=== PATIENT | male | born 1965 | race Caucasian/White ===

== ENCOUNTER 2016-09-21 17:33 | Emergency (ER) | payer OTHER ==
[~2016-09-21] VITALS: Ht 172.7 cm; Wt 70.7 kg
[~2016-09-21 17:33] MED LIST: CLINDAMYCIN HY300 MG PO; PERCOCET 5-3251 EACH PO; SYNTHROID100 MCG PO
[2016-09-21] MEDS ORDERED: VITAMIN D1000 UNIT PO (20:41)
[2016-09-21] MEDS ORDERED: CALCIUM600 M2 PO (20:42)
--- NOTE | 2016-09-21 21:25 | ED NECK/BACK PAIN COMPLAINT ---
History of Present Illness General Chief Complaint: General Adult Stated Complaint: LOWER BACK PAIN, RIGHT LEG NUMBNESS Source: patient Exam Limitations: no limitations Vital Signs & Intake/Output Vital Signs & Intake/Output Vital Signs Date Time Temp Pulse Resp B/P Pulse O2 O2 Flow FiO2 Ox Delivery Rate 09/21 2343 98.7 79 18 118/73 98 Room Air 09/21 2117 Room Air 09/21 2113 98.6 82 17 124/76 99 Room Air 09/21 1758 98.9 98 16 128/85 97 Room Air Allergies Coded Allergies: Penicillins (ANAPHYLAXIS 01/31/16) PCN PER ANTIBIOTIC ORDER SHEET OF 01/31/16 (SJS) Reconcile Medications Calcium Carbonate (Calcium) (Unknown Strength) TABLET (Unknown Dose) PO DAILY SUPPLEMENT (Reported) Cholecalciferol (Vitamin D3) (Vitamin D) 1,000 UNIT TABLET 1 TAB PO DAILY SUPPLEMENT (Reported) Diazepam (Valium) 2 MG TABLET 1 TAB PO BID PRN muscle strain Levothyroxine Sodium (Synthroid) 100 MCG TABLET 1 TAB PO DAILY thryoid Naproxen (Naprosyn) 500 MG TABLET 1 TAB PO BID PRN pain and inflammation Triage Note: PT STATES HE WAS WORKING WITH [employer]CR[employer] AND HE WENT TO PUT 80LBS DOWN AND HE FELT IT SLIPPING AND HE BENT TO TRY AND CATCH IT AND HE FELT A SHOCK IN HIS BACK. PT STATES HE COULDNT GET OFF THE GROUND FOR 20 MINUTES. PT STATES HE IS GETTING VERY BAD SPASM WHERE HE CAN'T MOVE. Triage Nurses Notes Reviewed? yes HPI: This patient is a 51-year-old male who presented to the emergency department today for evaluation of back pain. The patient reported that yesterday he was moving a cinderblock when it started to slip from his hands and he moved suddenly to catch it and bending down. He reported that he felt a snap and he felt the ground. He reported that he was unable to move or get up for approximately 15-20 minutes afterwards due to the pain and spasming. He reported that the pain gets up to a 10 out of 10, sharp and radiates down his right inner thigh. He denied any numbness or tingling in his leg or pain radiating down to his foot. He reported that the pain is primarily in the right lower back. No palliative factors. The patient denied any weakness in his lower extremities. He denied any fevers, chills, chest pain, shortness of breath, abdominal pain, nausea, vomiting, saddle paresthesia, bowel or bladder incontinence, urinary burning, urgency, frequency, or blood in the urine. No other associated symptoms. (CAITLIN JOSE PA-C) Past History Travel History Traveled to [place] past 21 day No Medical History Any Pertinent Medical History? 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 No (CAITLIN JOSE PA-C) Review of Systems Review of Systems Constitutional: Reports: no symptoms. Eyes: Reports: no symptoms. Ears, Nose, Throat, Mouth: Reports: no symptoms. Respiratory: Reports: no symptoms. Cardiovascular: Reports: no symptoms. Gastrointestinal/Abdominal: Reports: no symptoms. Musculoskeletal: Reports: see HPI. Skin: Reports: no symptoms. Neurological/Psychological: Reports: no symptoms. All Other Systems: Reviewed and Negative (CAITLIN JOSE PA-C) Physical Exam Physical Exam Neck: normal inspection, supple, full range of motion, normal alignment Comments: Well-developed well-nourished person in mild distress HEENT: Normal EENT exam, head normocephalic, moist mucous membranes Pupils equally round and reactive to light. Back: Normal inspection. Positive lumbar midline tenderness. Right-sided lumbar paraspinal musculature tenderness. Positive straight leg raise at 45 on the left. Positive straight leg raise at 30 on the right. Antalgic gait Respiratory: No respiratory distress. Speaking in full sentences Extremity: No edema, no calf tenderness to palpation, normal and equal pulses. Neuro: Alert oriented x3, cranial nerves II through XII grossly intact. 5 out of 5 muscular strength in all extremities Skin: No appreciable rash on exposed skin, skin is warm and dry. Psych: Mood and affect is normal (CAITLIN JOSE PA-C) Progress Differential Diagnosis: cauda equina syn, herniated disc, myofascial strain, pyelo/UTI, sciatica, spinal cord inj, thoracic outlet syn, T/L spine injury, ureterolithiasis Plan of Care: Orders Procedure Date/time Status COMPREHENSIVE METABOLIC PANEL 09/21 2157 Complete CBC WITHOUT DIFFERENTIAL 09/21 2157 Complete Laboratory Tests 09/21/16 2202: Anion Gap 18 H, Estimated GFR > 60, BUN/Creatinine Ratio 17.8, Glucose 90, Calcium 8.7, Total Bilirubin 0.6, AST 198 H, ALT 137 H, Alkaline Phosphatase 158 H, Total Protein 7.3, Albumin 3.9, Globulin 3.4, Albumin/Globulin Ratio 1.1 , CBC w Diff NO MAN DIFF REQ, RBC 3.59 L, MCV 115.0 H, MCH 39.9 H, RDW 12.6, MPV 7.3 L, Gran % 50.5, Lymphocytes % 32.7, Monocytes % 12.0 H, Eosinophils % 4.0, Basophils % 0.8, Absolute Granulocytes 2.7, Absolute Lymphocytes 1.8, Absolute Monocytes 0.6, Absolute Eosinophils 0.2, Absolute Basophils 0, PUBS MCHC 34.7 Diagnostic Imaging: Viewed by Me: CT Scan. Discussed w/RAD: CT Scan. Radiology Impression: PATIENT: BRAYDEN BREWER PRESENT AGE: 51 PATIENT ACCOUNT NO: [id number] : [birth year] LOCATION: [facility] ORDERING PHYSICIAN: CAITLIN JOSE PA-C SERVICE DATE: 09/21/16 EXAM TYPE: CAT - CT LUMB SPINE WO IV CONTRAST EXAMINATION: CT LUMBAR SPINE WITHOUT CONTRAST CLINICAL INFORMATION: Back pain. COMPARISON: None. TECHNIQUE: Axial images obtained through the lumbar spine. Coronal and sagittal reformatted images performed at CT scanner DLP: 336.43 mGy-cm. FINDINGS: No fracture. No focal bone lesion. Vertebrae have normal height and alignment. Facet joints are normal. Scattered vascular wall calcification of aorta and iliac vessels without aneurysm. Kidneys unremarkable. No hydronephrosis. SPINAL LEVELS: T12-L1: Normal. L1-L2: Normal. L2-L3: Normal. L3-L4: Normal. L4-L5: Normal. L5-S1: Normal. IMPRESSION: Unremarkable examination. DICTATED BY: DANIELLE GODWIN MD DATE/ TIME DICTATED:09/21/162120 FIRE TENDER:CONNER DATE/TIME TRANSCRIBED: 09/21/162120 CONFIDENTIAL, DO NOT COPY WITHOUT APPROPRIATE AUTHORIZATION. < Electronically signed in Other Vendor System> SIGNED BY: DANIELLE GODWIN MD 2127 Comments: 09/21/2016 10:31:15 PM: I was at the patient's bedside for reevaluation. He reported no relief of his symptoms with Soma, ibuprofen, and tramadol. Discussed this patient with DR GRUBBS who recommended giving this patient IV Valium and morphine. Updated the patient on the results of the CT scan was unremarkable. This patient will need an MRI and specialty follow-up. 09/21/2016 11:28:47 PM: I was at the patient's bedside for reevaluation. He is currently sitting up on the stretcher in reported that he feels like he is able to move around easier with the medication. The patient is requesting to go home at this time. I explained to the patient that he will need to call the specialist whose information I will provide for follow-up; he will likely need an MRI to rule out disc herniation. He was instructed to return for any worsening symptoms. (CAITLIN JOSE PA-C) Departure Departure Disposition: HOME OR SELF CARE Condition: Stable Clinical Impression Primary Impression: Low back strain Qualifiers: Encounter type: initial encounter Qualified Code: S39.012A - Strain of muscle, fascia and tendon of lower back, initial encounter Referrals: VINICIUS LEIJA DO (PCP/Family) JIM DIA,JENNIFER [place]. Additional Instructions: Take medication for pain as prescribed. Please call the orthopedic physician is information has been provided to you to schedule a follow-up appointment for further evaluation and management. Rest. Avoid any strenuous activity or heavy lifting. You may apply ice or heat to the affected area as needed. Gentle stretching. Return to the emergency department for any worsening symptoms or concerns. 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 I have also reviewed all the pertinent lab results and diagnostic results. I agree with the findings and the plan of care as documented in the PA's/OIL AND GAS RECRUITER's documentation. x I have reviewed the ED Record and agree with the PA's/OIL AND GAS RECRUITER's documentation. [] Additions or exceptions (if any) to the PAs/OIL AND GAS RECRUITER's note and plan are summarized below: [] (HUMERA DIA,WANDY)
--- NOTE | 2016-09-21 21:28 | CT SCAN REPORT ---
EXAMINATION: CT LUMBAR SPINE WITHOUT CONTRAST CLINICAL INFORMATION: Back pain. COMPARISON: None. TECHNIQUE: Axial images obtained through the lumbar spine. Coronal and sagittal reformatted images performed at CT scanner DLP: 336.43 mGy-cm. FINDINGS: No fracture. No focal bone lesion. Vertebrae have normal height and alignment. Facet joints are normal. Scattered vascular wall calcification of aorta and iliac vessels without aneurysm. Kidneys unremarkable. No hydronephrosis. SPINAL LEVELS: T12-L1: Normal. L1-L2: Normal. L2-L3: Normal. L3-L4: Normal. L4-L5: Normal. L5-S1: Normal. IMPRESSION: Unremarkable examination.
[2016-09-21 22:16] LABS: ABSOLUTE BASOPHIL COUNT 0 /CUMM (0.0-0.2); ABSOLUTE EOSINOPHIL COUNT 0.2 /CUMM (0.0-0.7); ABSOLUTE GRANULOCYTE CT 2.7 /CUMM (1.4-6.5); ABSOLUTE LYMPH COUNT 1.8 /CUMM (1.2-3.4); ABSOLUTE MONOCYTE COUNT 0.6 /CUMM (0.10-0.60); BASOPHIL % 0.8 % (0.0-2.0); GRANULOCYTE % 50.5 % (42.2-75.2); HEMATOCRIT 41.3 % (42-52); MEAN CORPUSCULAR HGB 39.9 PG (27.0-31.0); MEAN CORPUSCULAR HGB CONC 34.7 G/DL (33.0-37.0); MEAN PLATELET VOLUME 7.3 FL (7.4-10.4); PLATELET COUNT 149 /CUMM (130-400); RBC DISTRIBUTION WIDTH 12.6 % (11.5-14.5); RED BLOOD CELL CT 3.59 /CUMM (4.70-6.10); WHITE BLOOD CELL COUNT 5.4 /CUMM (4.8-10.8)
[2016-09-21] MEDS ORDERED: NAPROSYN500 M1 PO (23:31)
[2016-09-21] MEDS ORDERED: VALIUM2 M1 PO (23:31)
[2016-09-21 23:43] VITALS: BP 118/73
== END 2016-09-21 23:44 ==
LOC: ERH 17:33
PROVIDERS: Physician Assistant
DX: S39.012A Strain of muscle, fascia and tendon of lower back, initial encounter (principal); X58.XXXA Exposure to other specified factors, initial encounter
CPT/HCPCS: 96374; 96375; J3360

== ENCOUNTER 2017-02-17 18:49 | Emergency (ER) | payer OTHER ==
[~2017-02-17 18:49] MED LIST changes: +CALCIUM600 M2 PO; +NAPROSYN500 M1 PO; +VALIUM2 M1 PO; +VITAMIN D1000 UNIT PO
--- NOTE | 2017-02-17 19:09 | ED AMS/SEIZURE/WEAK/DIZZY ---
History of Present Illness General Chief Complaint: Altered Mental Status Stated Complaint: BIBA NONRESPONSIVE Source: old records, EMS Exam Limitations: unable to give history, clinical condition Vital Signs & Intake/Output Vital Signs & Intake/Output Vital Signs Date Time Temp Pulse Resp B/P B/P Pulse O2 O2 Flow FiO2 Mean Ox Delivery Rate 02/17 2258 74 18 117/82 98 Room Air 02/17 2118 96.6 70 17 110/65 95 Room Air 02/170 96.9 77 19 117/72 95 Room Air 02/18 2012 96.5 84 17 95/60 93 Room Air 02/17 1943 96.4 86 17 104/68 94 Room Air 02/17 1854 96.9 92 18 132/79 93 Room Air ED Intake and Output 02/18 0000 02/17 1200 Intake Total 1000 Output Total Balance 1000 Intake, IV 1000 Allergies Coded Allergies: Penicillins (ANAPHYLAXIS 01/31/16) PCN PER ANTIBIOTIC ORDER SHEET OF 01/31/16 (SJS) Reconcile Medications Calcium Carbonate (Calcium) (Unknown Strength) TABLET (Unknown Dose) PO DAILY SUPPLEMENT (Reported) Cholecalciferol (Vitamin D3) (Vitamin D) 1,000 UNIT TABLET 1 TAB PO DAILY SUPPLEMENT (Reported) Diazepam (Valium) 2 MG TABLET 1 TAB PO BID PRN muscle strain Levothyroxine Sodium (Synthroid) 100 MCG TABLET 1 TAB PO DAILY thryoid Naproxen (Naprosyn) 500 MG TABLET 1 TAB PO BID PRN pain and inflammation Triage Nurses Notes Reviewed? yes HPI: Patient presents for evaluation of unresponsiveness. Patient apparently tech stated a family member "help" and subsequently found to be altered to unresponsive by his son. Past History Travel History Traveled to [place] past 21 day No Medical History Any Pertinent Medical History? 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 No Review of Systems Review of Systems Constitutional: Reports: see HPI. Comments Patient unable to provide review of systems Physical Exam Physical Exam General Appearance: SEE BELOW Comments: Gen.: Well-nourished, well-developed, no acute respiratory distress. Patient is not cooperative with exam or history. Head: Normocephalic, atraumatic. Eyes: Normal inspection bilaterally, pupils midpoint and reactive Ears: Normal inspection bilaterally Nose: Normal inspection Throat/mouth : Moist mucosa Face: Flushed versus sunburn Neck: Supple, full range of motion, no goiter Heart: Regular rate and rhythm, no murmurs rubs or gallops Lungs: Clear to auscultation bilaterally with normal air entry Chest: Nontender Back: Normal range of motion Abdomen: Soft, nontender, nondistended, normal bowel sounds Extremities: Normal range of motion grossly, equal radial pulses, no cyanosis clubbing or edema Neurologic: Cranial nerves grossly intact, unable to assess speech Skin: warm and dry Psychiatric: Unable to assess as patient is not Vocally communicative Core Measures ACS in differential dx? No CVA/TIA Diagnosis: No Severe Sepsis Present: No Septic Shock Present: No Progress Differential Diagnosis: alcohol intoxication, CVA/stroke, dehydration, drug intoxication, hypoglycemia, hypoxia, intracranial Hem., intracranial mass/tumor, seizure disorder, OCCULT HEAD TRAUMA Plan of Care: Orders Procedure Date/time Status Restraint- Discontinue 02/17 2125 Active Continuous Observation Monitor 02/18 2104 Active Restraint- Behavioral ([facility]ew) 02/18 2012 Active Saline Lock 02/18 1908 Active URINE DRUG SCREEN FOR ER ONLY 02/18 1908 Active URINALYSIS 02/18 1908 Active THYROID STIMULATING HORMONE 02/18 1908 Complete TROPONIN LEVEL 02/18 1908 Complete T3 UPTAKE (THYROXINE BIND CAP) 02/18 1908 Complete THYROXINE 02/18 1908 Complete ETHANOL 02/18 1908 Complete COMPREHENSIVE METABOLIC PANEL 02/18 1908 Complete CBC WITHOUT DIFFERENTIAL 02/18 1908 Complete EKG 02/18 1908 Active Current Medications Sig/Pete Start time Last Medication Dose Stop Time Status Admin Sodium Chloride 1,000 ML ONCE ONE 02/17 1915 AC 02/17 (Normal Saline 0.9%) 02/18 0154 1938 Laboratory Tests 02/18/17 0019: Methadone Screen Pending, Barbiturate Screen Pending, Ur Phencyclidine Scrn Pending, Amphetamines Screen Pending, U Benzodiazepines Scrn Pending, Urine Cocaine Screen Pending, Urine Cannabis Screen Pending, Urine Color Pending, Urine Clarity Pending, Urine pH Pending, Ur Specific Dawn Pending, Urine Protein Pending, Urine Ketones Pending, Urine Nitrite Pending, Urine Bilirubin Pending, Urine Urobilinogen Pending, Ur Leukocyte Esterase Pending, Ur Microscopic Pending, Urine Hemoglobin Pending, Urine Glucose Pending 02/17/171935: Anion Gap 13, Estimated GFR > 60, BUN/Creatinine Ratio 19.0, Glucose 90, Calcium 7.5 L, Total Bilirubin 0.7, AST 174 H, ALT 117 H, Alkaline Phosphatase 121, Troponin I < 0.01, Total Protein 6.0 L, Albumin 3.0 L, Globulin 3.0, Albumin/ Globulin Ratio 1.0 L, TSH 0.351, Thyroxine (T4) 7.9, Thyroxine Binding Indx 44.6 H, CBC w Diff NO MAN DIFF REQ, RBC 3.22 L, MCV 118.8 H, MCH 41.2 H, RDW 12.8, MPV 7.0 L, Gran % 50.2, Lymphocytes % 37.1, Monocytes % 10.5 H, Eosinophils % 1.8, Basophils % 0.4, Absolute Granulocytes 4.0, Absolute Lymphocytes 2.9, Absolute Monocytes 0.8 H, Absolute Eosinophils 0.1, Absolute Basophils 0, PUBS MCHC 34.7, Serum Alcohol 225.0 Microbiology 02/18 1908 URINE ROUT: Urine Culture - CAN Cancelled: Cancelled via OE: Per MD Decision Diagnostic Imaging: Discussed w/RAD: Radiology Read, CT Scan. Radiology Impression: PATIENT: BRAYDEN BREWER PRESENT AGE: 52 PATIENT ACCOUNT NO: [id number] : 69 LOCATION: [facility] ORDERING PHYSICIAN: CHAPO NOLASCO MD SERVICE DATE: 02/17/17 EXAM TYPE: CAT - CT HEAD WO IV CONTRAST EXAMINATION: CT HEAD WITHOUT CONTRAST CLINICAL INFORMATION: 52-year-old man with trauma. COMPARISON: None TECHNIQUE: Contiguous axial imaging was performed from the skull base to vertex without intravenous administration of contrast. DLP: 690 mGy-cm FINDINGS: There is no evidence of acute intracranial hemorrhage or territorial infarction. No abnormal mass effect or midline shift is seen. Conner to white matter differentiation is well preserved. No extra-axial fluid collections are identified. The ventricles are normal in size. There is no abnormal attenuation within the brain parenchyma. The osseous structures and soft tissues are normal. Mild mucosal thickening is noted in the ethmoid air cells, sphenoid sinus, and left maxillary sinus. IMPRESSION: No acute intracranial pathology. DICTATED BY: DANYEL MACDONALD MD DATE/ TIME DICTATED:02/17/172149 SALESPERSON RECREATIONAL VEHICLES:CONNER DATE/TIME TRANSCRIBED: 02/17/172149 CONFIDENTIAL, DO NOT COPY WITHOUT APPROPRIATE AUTHORIZATION. < Electronically signed in Other Vendor System> SIGNED BY: DANYEL MACDONALD MD 06/26 CXR Impression: PATIENT: BRAYDEN BREWER PRESENT AGE: 52 PATIENT ACCOUNT NO: [id number] : 69 LOCATION: [facility] ORDERING PHYSICIAN: CHAPO NOLASCO MD SERVICE DATE: 02/17/17 EXAM TYPE: RAD - XRY-PORTABLE CHEST XRAY EXAMINATION: XR PORTABLE CHEST CLINICAL INFORMATION: 52-year-old man with confusion. COMPARISON: None TECHNIQUE: Portable frontal view of the chest was obtained. FINDINGS: Lung volumes are somewhat low, accentuating normal bronchovascular markings. No convincing focal airspace consolidation or overt pulmonary edema is appreciated. Heart size is at the upper range of normal. There are no pleural effusions. IMPRESSION: Low lung volumes. No convincing radiographic evidence of an acute cardiopulmonary process. DICTATED BY: DANYEL MACDONALD MD DATE/TIME DICTATED:02/17/171927 SALESPERSON RECREATIONAL VEHICLES:CONNER DATE/TIME TRANSCRIBED:02/17/171927 CONFIDENTIAL, DO NOT COPY WITHOUT APPROPRIATE AUTHORIZATION. <Electronically signed in Other Vendor System> SIGNED BY: DANYEL MACDONALD MD 02/17/171930 Initial ED EKG: NSR, rate (95), LAD Prior EKG: unchanged Comments: 02/17/2017 7:06:27 PM patient was unresponsive to verbal intervention when placed onto the stretcher. He attempted to kick and bite the ED staff. 4 point leather restraints applied and IM sedatives ordered. No apparent signs of head trauma. No alcohol like odor. During restraint patient seemed to make purposeful movements/suspect underlying psychiatric issue. 02/17/2017 8:08:30 PM per , pt well this afternoon and went to sleep. c/o trouble breathing recently txed for bronchitis. also c/o back pain (has episodes on occasion). 02/17/2017 8:11:01 PM Brayden appears to be considerably more sedate and is now answering questions. We are beginning to remove the restraints. I have notified him of my discussion with his and that she will be arriving shortly. He seemed a little ashamed that the notion that his would be coming in to see him. He admits to alcohol use this evening. 02/18/2017 12:31:47 AM Brayden has slept during his emergency department stay and has been removed from the restraints. He has been back and forth to the bathroom without much difficulty. His feels comfortable taking him home at this point. Departure Departure Disposition: HOME OR SELF CARE Condition: Stable Clinical Impression Primary Impression: Alcohol intoxication delirium, acute, hyperactive Secondary Impressions: Alcoholic hepatitis Qualifiers: Ascites presence: without ascites Qualified Code: K70.10 - Alcoholic hepatitis without ascites Referrals: VINICIUS LEIJA DO Additional Instructions: Do not drink to excess. Follow-up with your primary care doctor this week for reevaluation. Return if any concerns or sudden worsening. Please note that there might be incidental findings in your evaluation that are unrelated to the current emergency department visit. Please notify your primary care doctor about this emergency department visit in order to obtain and review all of the testing performed so that these incidental findings can be monitored as needed. If you had an x-ray performed, please understand that some fractures may not be seen on the initial set of x-rays. If your symptoms persist you might need a repeat set of x-rays to check for such a fracture. If you had a laceration evaluated, please understand that foreign bodies such as glass or wood may not be visible to the naked eye or on plain x-rays. If the wound becomes red, swollen, increasingly more painful or if there is any drainage from the wound, please have it reevaluated by a physician for the possibility of a retained foreign body. Thank you for choosing the [facility] for your care. It was a pleasure to serve you today. Chapo Nolasco M.D. [facility] Departure Forms: Customer Survey General Discharge Information
--- NOTE | 2017-02-17 19:31 | RADIOLOGY REPORT ---
EXAMINATION: XR PORTABLE CHEST CLINICAL INFORMATION: 52-year-old man with confusion. COMPARISON: None TECHNIQUE: Portable frontal view of the chest was obtained. FINDINGS: Lung volumes are somewhat low, accentuating normal bronchovascular markings. No convincing focal airspace consolidation or overt pulmonary edema is appreciated. Heart size is at the upper range of normal. There are no pleural effusions. IMPRESSION: Low lung volumes. No convincing radiographic evidence of an acute cardiopulmonary process.
[2017-02-17 19:54] LABS: ABSOLUTE BASOPHIL COUNT 0 /CUMM (0.0-0.2); ABSOLUTE EOSINOPHIL COUNT 0.1 /CUMM (0.0-0.7); ABSOLUTE LYMPH COUNT 2.9 /CUMM (1.2-3.4); ABSOLUTE MONOCYTE COUNT 0.8 /CUMM (0.10-0.60); BASOPHIL % 0.4 % (0.0-2.0); EOSINOPHIL % 1.8 % (0-5); GRANULOCYTE % 50.2 % (42.2-75.2); HEMATOCRIT 38.3 % (42-52); MEAN CORPUSCULAR HGB 41.2 PG (27.0-31.0); MEAN CORPUSCULAR HGB CONC 34.7 G/DL (33.0-37.0); MEAN CORPUSCULAR VOLUME 118.8 FL (80.0-94.0); PLATELET COUNT 141 /CUMM (130-400); RBC DISTRIBUTION WIDTH 12.8 % (11.5-14.5); RED BLOOD CELL CT 3.22 /CUMM (4.70-6.10); WHITE BLOOD CELL COUNT 7.9 /CUMM (4.8-10.8)
--- NOTE | 2017-02-17 21:55 | CT SCAN REPORT ---
EXAMINATION: CT HEAD WITHOUT CONTRAST CLINICAL INFORMATION: 52-year-old man with trauma. COMPARISON: None TECHNIQUE: Contiguous axial imaging was performed from the skull base to vertex without intravenous administration of contrast. DLP: 690 mGy-cm FINDINGS: There is no evidence of acute intracranial hemorrhage or territorial infarction. No abnormal mass effect or midline shift is seen. Conner to white matter differentiation is well preserved. No extra-axial fluid collections are identified. The ventricles are normal in size. There is no abnormal attenuation within the brain parenchyma. The osseous structures and soft tissues are normal. Mild mucosal thickening is noted in the ethmoid air cells, sphenoid sinus, and left maxillary sinus. IMPRESSION: No acute intracranial pathology.
[2017-02-18 00:46] VITALS: BP 126/84
== END 2017-02-18 00:48 ==
LOC: ERH 18:49
PROVIDERS: Emergency Medicine
DX: K70.10 Alcoholic hepatitis without ascites (principal); F10.921 Alcohol use, unspecified with intoxication delirium
CPT/HCPCS: 80307; 81001; 87086; 93005; 93010; 96372; G0480; J1200; J1630

== ENCOUNTER 2018-02-11 04:38 | Emergency (ER) | payer OTHER ==
[~2018-02-11] VITALS: Ht 172.7 cm; Wt 63.5 kg
--- NOTE | 2018-02-11 04:42 | ED GENERAL ADULT ---
History of Present Illness General Chief Complaint: General Adult Stated Complaint: "RT SIDE ABD PAIN, +N+V+D Source: patient Exam Limitations: no limitations Vital Signs & Intake/Output Vital Signs & Intake/Output Vital Signs Date Time Temp Pulse Resp B/P B/P Pulse O2 O2 Flow FiO2 Mean Ox Delivery Rate 02/11 0507 98 Room Air 02/11 0447 96.0 78 18 162/93 99 Room Air Allergies Coded Allergies: Penicillins (ANAPHYLAXIS 01/31/16) PCN PER ANTIBIOTIC ORDER SHEET OF 01/31/16 ([facility]) Reconcile Medications Calcium Carbonate (Calcium) (Unknown Strength) TABLET (Unknown Dose) PO DAILY SUPPLEMENT (Reported) Cholecalciferol (Vitamin D3) (Vitamin D) 1,000 UNIT TABLET 1 TAB PO DAILY SUPPLEMENT (Reported) Diazepam (Valium) 2 MG TABLET 1 TAB PO BID PRN muscle strain Diphenoxylate HCl/Atropine (Lomotil 2.5-0.025 MG Tablet) 2.5 MG-0.025 MG TABLET 1-2 TAB PO 4 TIMES/DAY DIARRHEA TWENTY....[id number] Levothyroxine Sodium (Synthroid) 100 MCG TABLET 1 TAB PO DAILY thryoid Naproxen (Naprosyn) 500 MG TABLET 1 TAB PO BID PRN pain and inflammation Ondansetron (Zofran Odt) 4 MG TAB.RAPDIS 1 TAB SL TID PRN NAUSEA Triage Nurses Notes Reviewed? yes Onset: Gradual Duration: day(s): Timing: recent history Injury Environment: home Severity: moderate Modifying Factors: Worsens With: other (worse w/palpation). Associated Symptoms: rlq pain HPI: 23-year-old gentleman in prior good health presents with 2-3 days of diffuse abdominal pain that migrated to his right lower quadrant, associated with nausea vomiting diarrhea and loss of appetite. He has no fever chills chest pain shortness of breath or headache. He states that he has had a decreased oral intake over the past few days. He is otherwise well and has no other concerns. Past History Travel History Traveled to [place] past 21 day No Medical History Any Pertinent Medical History? 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 No Review of Systems Review of Systems Constitutional: Reports: no symptoms. EENTM: Reports: no symptoms. Respiratory: Reports: no symptoms. Cardiovascular: Reports: no symptoms. GI: Reports: no symptoms. Genitourinary: Reports: no symptoms. Musculoskeletal: Reports: no symptoms. Skin: Reports: no symptoms. Neurological/Psychological: Reports: no symptoms. Hematologic/Endocrine: Reports: no symptoms. Immunologic/Allergic: Reports: no symptoms. All Other Systems: Reviewed and Negative Physical Exam Physical Exam General Appearance: mild distress, moderate distress Comments: Review of Systems - except as otherwise noted in HPI All Other Systems: Reviewed and Negative Physical Exam Physical Exam General Appearance: well developed/nourished, no apparent distress Head: atraumatic, normal appearance Eyes: Bilateral: normal appearance. Ears, Nose, Throat: normal pharynx, normal ENT inspection Neck: normal inspection, supple, full range of motion Respiratory: normal breath sounds, chest non-tender, no respiratory distress, quiet respiration, lungs clear Cardiovascular: regular rate/rhythm Gastrointestinal: normal bowel sounds, soft,no organomegaly, right lower quadrant and midepigastric tenderness to palpation with mild rebound Back: normal inspection, normal range of motion Extremities: normal inspection, normal capillary refill, normal range of motion, no edema Neurologic/Psych: no motor/sensory deficits, awake, alert, oriented x 3 Skin: intact, normal color, warm/dry Core Measures ACS in differential dx? No CVA/TIA Diagnosis: No Sepsis Present: No Sepsis Focused Exam Completed? No Progress Differential Diagnoses I considered the following diagnoses in my evaluation of the patient: Appendectomy versus diverticulitis versus gastroenteritis versus other Plan of Care: Orders Procedure Date/time Status Add-on Test (ER Only) 02/11 523 Active ETHANOL 02/11 455 Complete TROPONIN LEVEL 02/11 442 Complete LIPASE 02/11 442 Complete HEPATIC FUNCTION PANEL 02/11 442 Complete CBC WITHOUT DIFFERENTIAL 02/11 442 Complete BASIC METABOLIC PANEL 02/11 442 Complete AMYLASE 02/11 442 Complete EKG 02/11 442 Active Current Medications Sig/Pete Start time Last Medication Dose Stop Time Status Admin Diphenoxylate HCl/ 5 MG ONCE ONE 02/11 615 AC Atropine 02/12 616 (Lomotil) Laboratory Tests 02/11/18 0455: Anion Gap 11, Estimated GFR > 60, BUN/Creatinine Ratio 22.2, Glucose 120 H, Calcium 9.5, Total Bilirubin 2.7 H, Direct Bilirubin 0.8 H, AST 188 H, ALT 124 H, Alkaline Phosphatase 103, Troponin I < 0.01, Total Protein 7.9, Albumin 3.9, Amylase 49, Lipase 84, CBC w Diff NO MAN DIFF REQ, RBC 3.52 L, MCV 120.4 H, MCH 41.5 H, MCHC 34.5, RDW 12.7, MPV 7.9, Gran % 51.6, Lymphocytes % 30.9, Monocytes % 12.3 H, Eosinophils % 4.6, Basophils % 0.6, Absolute Granulocytes 3.3, Absolute Lymphocytes 2.0, Absolute Monocytes 0.8 H, Absolute Eosinophils 0.3, Absolute Basophils 0, Serum Alcohol < 10.0 Diagnostic Imaging: Viewed by Me: CT Scan. Discussed w/RAD: CT Scan. Radiology Impression: PATIENT: BRAYDEN BREWER PRESENT AGE: 53 PATIENT ACCOUNT NO: [id number] : 67 LOCATION: [facility] ORDERING PHYSICIAN: Deven English MD SERVICE DATE: 02/11/18 EXAM TYPE: CAT - CT ABD & PELVIS W/O IV CONTRAS EXAMINATION: CT ABDOMEN AND PELVIS WITHOUT CONTRAST CLINICAL INFORMATION: Right lower quadrant pain, question appendicitis COMPARISON: None TECHNIQUE: Multidetector volumetric imaging was performed from the superior aspect of the liver through the pubic symphysis. Sagittal and coronal reformatted images were obtained on the technologist's workstation. DLP: 258.70 mGy-cm FINDINGS: LUNG BASES: The visualized lung bases are unremarkable. LIVER, GALLBLADDER, AND BILIARY TREE: The liver appears mildly enlarged, measuring approximately 19.5 cm in craniocaudal dimension. No focal hepatic lesion or biliary ductal dilatation is identified, though assessment is limited in the absence of intravenous contrast. The gallbladder is unremarkable. PANCREAS: Unremarkable. SPLEEN: Unremarkable. ADRENAL GLANDS: Unremarkable. KIDNEYS AND URETERS: The kidneys are normal in size, shape, and attenuation. No hydronephrosis, hydroureter, or calculi seen. No perinephric stranding. BLADDER: Unremarkable. GASTROINTESTINAL TRACT: No evidence of bowel obstruction. No appreciable bowel wall thickening or pericolonic stranding to suggest a colitis. The appendix is not discretely identified and is suspected to be collapsed. No secondary findings to suggest appendicitis. No free fluid or free air is seen. ABDOMINAL WALL: No significant hernia is appreciated. LYMPH NODES: Normal. VASCULAR: There is atherosclerotic calcification along the aorta. PELVIC VISCERA : Unremarkable. OSSEOUS STRUCTURES: Unremarkable. IMPRESSION: 1. No acute findings identified in the abdomen/pelvis. The appendix is not discretely identified and is suspected to be collapsed. 2. Mild hepatomegaly. DICTATED BY: Reuben Lim MD DATE/TIME DICTATED:02/11/18534 VAULT KEEPER:CONNER DATE/TIME TRANSCRIBED:02/11/18534 CONFIDENTIAL, DO NOT COPY WITHOUT APPROPRIATE AUTHORIZATION. <Electronically signed in Other Vendor System> SIGNED BY: Reuben Lim MD 02/11/18 0552 Initial ED EKG: SINUS, NO ACUTE CHANGES. Departure Departure Disposition: HOME OR SELF CARE Condition: Stable Clinical Impression Primary Impression: Abdominal pain Referrals: Carlos DIA,Alonzo Markham (PCP/Family) Departure Forms: Customer Survey General Discharge Information Prescriptions: Current Visit Scripts Diphenoxylate HCl/Atropine (Lomotil 2.5-0.025 MG Tablet) 1-2 TAB PO 4 TIMES/DAY #20 TAB TWENTY....[id number] Ondansetron (Zofran Odt) 1 TAB SL TID PRN NAUSEA #10 TAB Ref 1 Comments 02/11/18, 6:07AM... Pt is resting comfortably.... ct scan and labs benign, lft's consistent with hep c... discussed supportive measures... zofran/lomotil... pt counseled to return if symptoms not improved in 24 hours. Critical Care Note Critical Care Note Critical Care Time: non-applicable
[2018-02-11 05:10] LABS: ABSOLUTE BASOPHIL COUNT 0 /CUMM (0.0-0.2); ABSOLUTE EOSINOPHIL COUNT 0.3 /CUMM (0.0-0.7); ABSOLUTE GRANULOCYTE CT 3.3 /CUMM (1.4-6.5); ABSOLUTE MONOCYTE COUNT 0.8 /CUMM (0.10-0.60); BASOPHIL % 0.6 % (0.0-2.0); EOSINOPHIL % 4.6 % (0-5); GRANULOCYTE % 51.6 % (42.2-75.2); HEMATOCRIT 42.4 % (42-52); MEAN CORPUSCULAR HGB 41.5 PG (27.0-31.0); MEAN CORPUSCULAR HGB CONC 34.5 G/DL (33.0-37.0); MEAN CORPUSCULAR VOLUME 120.4 FL (80.0-94.0); MEAN PLATELET VOLUME 7.9 FL (7.4-10.4); PLATELET COUNT 143 /CUMM (130-400); RBC DISTRIBUTION WIDTH 12.7 % (11.5-14.5); RED BLOOD CELL CT 3.52 /CUMM (4.70-6.10); WHITE BLOOD CELL COUNT 6.4 /CUMM (4.8-10.8)
--- NOTE | 2018-02-11 05:52 | CT SCAN REPORT ---
EXAMINATION: CT ABDOMEN AND PELVIS WITHOUT CONTRAST CLINICAL INFORMATION: Right lower quadrant pain, question appendicitis COMPARISON: None TECHNIQUE: Multidetector volumetric imaging was performed from the superior aspect of the liver through the pubic symphysis. Sagittal and coronal reformatted images were obtained on the technologist's workstation. DLP: 258.70 mGy-cm FINDINGS: LUNG BASES: The visualized lung bases are unremarkable. LIVER, GALLBLADDER, AND BILIARY TREE: The liver appears mildly enlarged, measuring approximately 19.5 cm in craniocaudal dimension. No focal hepatic lesion or biliary ductal dilatation is identified, though assessment is limited in the absence of intravenous contrast. The gallbladder is unremarkable. PANCREAS: Unremarkable. SPLEEN: Unremarkable. ADRENAL GLANDS: Unremarkable. KIDNEYS AND URETERS: The kidneys are normal in size, shape, and attenuation. No hydronephrosis, hydroureter, or calculi seen. No perinephric stranding. BLADDER: Unremarkable. GASTROINTESTINAL TRACT: No evidence of bowel obstruction. No appreciable bowel wall thickening or pericolonic stranding to suggest a colitis. The appendix is not discretely identified and is suspected to be collapsed. No secondary findings to suggest appendicitis. No free fluid or free air is seen. ABDOMINAL WALL: No significant hernia is appreciated. LYMPH NODES: Normal. VASCULAR: There is atherosclerotic calcification along the aorta. PELVIC VISCERA: Unremarkable. OSSEOUS STRUCTURES: Unremarkable. IMPRESSION: 1. No acute findings identified in the abdomen/pelvis. The appendix is not discretely identified and is suspected to be collapsed. 2. Mild hepatomegaly.
[2018-02-11] MEDS ORDERED: ZOFRAN ODT4 M1 SL (06:02)
[2018-02-11] MEDS ORDERED: LOMOTIL 2.5-0.1 EACH PO (06:02)
[2018-02-11 06:12] VITALS: BP 129/83
== END 2018-02-11 06:18 ==
LOC: ERH 04:38
PROVIDERS: Pediatrics
DX: R10.31 Right lower quadrant pain (principal)
CPT/HCPCS: 74176; 93005; 93010; 96361; 96374; 96375; G0480; J0131; J1885; J2405